=== PATIENT | female | born 1965 | race Two or more races ===

== ENCOUNTER 2016-07-31 19:11 | Emergency (ER) | payer BC ==
[~2016-07-31] VITALS: Ht 152.4 cm; Wt 114.0 kg
[~2016-07-31 19:11] MED LIST: GABA300C10 PO; OXYC-229 PO; SERT100T PO
[2016-07-31] MEDS ORDERED: SODIUM CHLORIDE FLUSH 10ML SYR IVF ONE (19:30)
[2016-07-31 19:49] LABS: HEMOGLOBIN 10.5 g/dL (11.7-16.4)
[2016-07-31] MEDS ORDERED: MORPHINE SULFATE 4 MG/ML, 1ML IVPush PRN (20:00)
[2016-07-31 20:01] LABS: BLOOD UREA NITROGEN 19 mg/dL (7-18)
[2016-07-31] MEDS ORDERED: MORPHINE SULFATE 4 MG/ML, 1ML ONE (20:22)
[2016-07-31] MEDS ORDERED: NITROGLYCERIN SINGLE TAB 0.4 MG SL ONE (20:23)
[2016-07-31] MEDS ORDERED: NITROGLYCERIN SINGLE TAB 0.4 MG SL PRN (20:30)
[2016-07-31 20:33] LABS: IS PT STATUS REG ER OR PRE ER? YES
[2016-07-31 21:56] VITALS: BP 119/74
== END 2016-07-31 22:32 ==
LOC: ED 20:48
DX: R07.1 Chest pain on breathing (principal); M54.5 Low back pain; M54.2 Cervicalgia; G89.29 Other chronic pain
CPT/HCPCS: 36415; 71010; 80048; 82040; 84484; 85025; 85379; 93005; 96374

== ENCOUNTER 2016-08-13 09:57 | Emergency (ER) | payer BC ==
[~2016-08-13] VITALS: Ht 160 cm; Wt 115.0 kg
[2016-08-13 10:10] VITALS: BP 127/78
[2016-08-13] MEDS ORDERED: DIAZEPAM 5 MG TABLET PO ONE (11:00)
[2016-08-13] MEDS ORDERED: HYDROmorphone 1 MG/ML, 1ML IM ONE (11:00)
[2016-08-13] MEDS ORDERED: ONDANSETRON ODT 4 MG PO ONE (11:00)
[2016-08-13] MEDS ORDERED: HYDROmorphone 1 MG/ML, 1ML ONE (11:02)
[2016-08-13] MEDS ORDERED: DIAZEPAM 5 MG TABLET ONE (11:03)
[2016-08-13] MEDS ORDERED: ONDANSETRON ODT 4 MG ONE (11:03)
== END 2016-08-13 11:44 | disposition home or self-care (01) ==
LOC: ED 11:40
DX: S33.5XXA Sprain of ligaments of lumbar spine, initial encounter (principal); M54.2 Cervicalgia; M54.9 Dorsalgia, unspecified; G89.29 Other chronic pain; X58.XXXA Exposure to other specified factors, initial encounter; Y93.89 Activity, other specified; Y92.89 Other specified places as the place of occurrence of the external cause; Y99.8 Other external cause status
CPT/HCPCS: 96372; 99283; J1170; Q0162

== ENCOUNTER → 2016-11-28 | Outpatient (CLI) | payer BC | END | disposition home or self-care (01) | LOC: RAD 14:01 | PROVIDERS: ATTEND Neurological Surgery | DX: Z01.818 Encounter for other preprocedural examination (principal); M50.30 Other cervical disc degeneration, unspecified cervical region; M48.02 Spinal stenosis, cervical region | CPT/HCPCS: 71020 ==